=== PATIENT | male | born 1960 | race Caucasian/White ===

== ENCOUNTER 2020-08-04 17:42 | Observation (INO) | payer MEDICARE, SELFPAY ==
--- NOTE | 2020-08-04 17:47 | XRR_ITS ---
PROCEDURE INFORMATION: Exam: XR Chest, 1 View Exam date and time: 08/04/2020 6:02 PM Age: 59 years old Clinical indication: Chest pain; Type not specified; Additional info: Cp TECHNIQUE: Imaging protocol: XR of the chest Views: 1 view. COMPARISON: No relevant prior studies available. FINDINGS: Lungs: Unremarkable. No consolidation. Pleural space: Unremarkable. No pleural effusion. No pneumothorax. Heart/Mediastinum: Unremarkable. No cardiomegaly. Bones/joints: Unremarkable. XR/XR chest 1V portable [id number] IMPRESSION: No acute findings.
--- NOTE | 2020-08-04 17:47 | ECG_ITS ---
[facility] Test Date: 2020-08-04 Pat Name: Chris Lawrence Department: Room: Gender: Male Field Organizer: : 1960 Requested By: Tacho Taylor Order Number: [id number] Nereyda MD: Hali Dumont M.D. Measurements Intervals [place] Rate: 91 P: 15 [place]: 150 QRS: 46 QRSD: 97 T: 75 QT: 333 QTc: 411 Interpretive Statements SINUS RHYTHM INTERPRETATION BASED ON A DEFAULT AGE OF 40 YEARS No previous ECG available for comparison Electronically Signed On 08-04-2020 20:09:22 PROOF CLERK by Hali Dumont M.D. [id number] f
[2020-08-04 17:48] VITALS: BP 134/98; PULSE 107; RESP 16; TEMP 36.4; O2SAT 98; BMI 26.4
--- NOTE | 2020-08-04 17:55 | W.ED.ARRPALP ---
HPI - Arrhythmia/Palpitations General: Chief Complaint: General Medical Stated Complaint: CHEST PAIN Time Seen by Provider: 08/04/20 17:46 Source: patient and EMS Mode of arrival: EMS Limitations: no limitations History of Present Illness: HPI narrative: 59-year-old male states that over the last 2 to 3 months he has been having palpitations and then will feel lightheaded and did pass out once 2 months ago. He states this morning he had an episode that lasted an hour and felt quite lightheaded and had palpitations he states then resolved and then it started again tonight. Patient states he had slight chest pain. Denies any worsening or improving factors. Denies any fever. He denies any pain currently states he is feeling improved currently. MD complaint: rapid heart beat Associated symptoms: Deny nausea or vomiting Review of Systems Const: Denies: fever(s), chills, body aches or change in appetite Eyes: Denies: blurry vision or eye discomfort ENMT: Denies: throat pain or dental pain Card: Reports: chest pain and palpitations Resp: Denies: dyspnea GI: Denies: abdominal pain, nausea, vomiting or diarrhea : Denies: dysuria Musc: Denies: neck pain or back pain Skin/Breast: Denies: rash Neuro: Denies: headache(s) Psych: Denies: depression Tomy/Lymph: Denies: easy bruising All/Imm: Denies: urticaria Physical Exam Const: COMMON NORMALS: no acute distress, patient oriented x3 and healthy appearing HENMT: COMMON NORMALS: normocephalic and atraumatic HEAD & SCALP: normocephalic and atraumatic Eye: COMMON NORMALS: Equal, round and reactive pupils present and EOMs intact bilaterally PUPIL: Yes Equal, round and reactive pupils present Neck/C-Spine: COMMON NORMALS: full ROM and supple Chest: COMMONS NORMALS: normal inspection of the chest and normal palpation of entire chest wall Resp: COMMON NORMALS: normal respiratory effort, No retractions, No use of accessory muscles and clear to auscultation bilaterally AUSCULTATION: clear to auscultation bilaterally Cardio: COMMON NORMALS: regular rhythm and No murmurs present (Cardio) RATE: tachycardic RHYTHM: regular rhythm GI: COMMON NORMALS: Normal to inspection, nondistended, normoactive bowel sounds present, Soft to palpation, non-tender and no masses PALPATION: Yes Soft to palpation Extremity: COMMON NORMALS: normal to inspection and full ROM Neuro: COMMON NORMALS: patient oriented x3, moves all extremities and no focal motor deficits Psych: COMMON NORMALS: mental status grossly normal, Normal thought process present and cooperative THOUGHT PROCESS: Normal thought process present Skin: COMMON NORMALS: no rashes or lesions noted and no wounds GENERAL SKIN EXAM: no rashes or lesions noted Course Vital Signs: Vital signs: Vital Signs Temperature 97.6 F 08/04/20 17:48 Pulse Rate 78 08/04/20 21:05 Respiratory Rate 18 08/04/20 21:05 Blood Pressure 122/96 08/04/20 21:05 Pulse Oximetry 99 08/04/20 21:05 MDM - Arrhythmia/Palpitations MDM Narrative: Medical decision making narrative: Chris presents here with chest pain does have an elevated troponin consistent with NSTEMI. Patient given Lovenox here. He has been pain-free in the ER. Spoke to hospitalist and will admit for ACS rule out. His D-dimer is negative. Lab Data: Labs: Lab Results 08/04/20 08/04/20 08/04/20 Range/Units 17:55 17:55 17:55 WBC 11.1 H (4.0-10.0) 10^3/ uL RBC 5.74 H (4.1-5.3) 10^6/u L Hgb 16.9 H (11.7-16.6) g/dL Hct 50.0 (42.0-52.0) % MCV 87.1 (80-94) fL MCH 29.4 (28.0-34.0) pg MCHC 33.8 (30.0-36.0) g/dL RDW 12.8 (12.1-15.1) % Plt Count 329 (130-400) 10^3/c mm MPV 11.2 H (7.4-10.4) fL Neut % (Auto) 47.8 % Lymph % (Auto) 40.6 % [place] % (Auto) 6.7 % Eos % (Auto) 3.2 % Baso % (Auto) 1.4 % Neut # (Auto) 5.31 (1.8-7.7) 10^3/u L Lymph # (Auto) 4.5 (0.8-4.8) 10^3/u L [place] # (Auto) 0.7 (0.2-0.9) 10^3/u L Eos # (Auto) 0.4 (0.0-0.8) 10^3/u L Baso # (Auto) 0.2 H (0.0-0.1) 10^3/u L Nucleated RBC % (a uto) 0 % Nucleated RBCs # 0.0 /100WBC D-Dimer Sodium Cancelled Potassium Cancelled Chloride Cancelled Carbon Dioxide Cancelled Anion Gap Cancelled BUN Cancelled Creatinine Cancelled GFR Calculation Cancelled Glucose Cancelled Calculated Osmolal ity Cancelled Calcium Cancelled Total Bilirubin Cancelled AST Cancelled ALT Cancelled Alkaline Phosphata se Cancelled Troponin T Baselin e Cancelled Troponin T 120 Min [place] (0-15) ng/L Delta Troponin T (0-10) ABS# Total Protein Cancelled Albumin Cancelled Globulin Cancelled 08/04/20 08/04/20 08/04/20 Range/Units 17:55 18:30 18:30 WBC (4.0-10.0) 10^3/ uL RBC (4.1-5.3) 10^6/u L Hgb (11.7-16.6) g/dL Hct (42.0-52.0) % MCV (80-94) fL MCH (28.0-34.0) pg MCHC (30.0-36.0) g/dL RDW (12.1-15.1) % Plt Count (130-400) 10^3/c mm MPV (7.4-10.4) fL Neut % (Auto) % Lymph % (Auto) % [place] % (Auto) % Eos % (Auto) % Baso % (Auto) % Neut # (Auto) (1.8-7.7) 10^3/u L Lymph # (Auto) (0.8-4.8) 10^3/u L [place] # (Auto) (0.2-0.9) 10^3/u L Eos # (Auto) (0.0-0.8) 10^3/u L Baso # (Auto) (0.0-0.1) 10^3/u L Nucleated RBC % (a uto) % Nucleated RBCs # /100WBC D-Dimer Cancelled 0.37 Sodium 139 Potassium 4.2 Chloride 104 Carbon Dioxide 26 Anion Gap 13.2 BUN 17 Creatinine 1.2 GFR Calculation 62.0 L Glucose 88 Calculated Osmolal ity 289 Calcium 9.6 Total Bilirubin 0.8 AST 16 ALT 12 Alkaline Phosphata se 80 Troponin T Baselin e Troponin T 120 Min rosebud (0-15) ng/L Delta Troponin T (0-10) ABS# Total Protein 6.5 L Albumin 4.2 Globulin 2.3 08/04/20 08/04/20 Range/Units 18:30 20:05 WBC (4.0-10.0) 10^3/ uL RBC (4.1-5.3) 10^6/u L Hgb (11.7-16.6) g/dL Hct (42.0-52.0) % MCV (80-94) fL MCH (28.0-34.0) pg MCHC (30.0-36.0) g/dL RDW (12.1-15.1) % Plt Count (130-400) 10^3/c mm MPV (7.4-10.4) fL Neut % (Auto) % Lymph % (Auto) % [place] % (Auto) % Eos % (Auto) % Baso % (Auto) % Neut # (Auto) (1.8-7.7) 10^3/u L Lymph # (Auto) (0.8-4.8) 10^3/u L [place] # (Auto) (0.2-0.9) 10^3/u L Eos # (Auto) (0.0-0.8) 10^3/u L Baso # (Auto) (0.0-0.1) 10^3/u L Nucleated RBC % (a uto) % Nucleated RBCs # /100WBC D-Dimer Sodium Potassium Chloride Carbon Dioxide Anion Gap BUN Creatinine GFR Calculation Glucose Calculated Osmolal ity Calcium Total Bilirubin AST ALT Alkaline Phosphata se Troponin T Baselin e 54 H Troponin T 120 Min rosebud 78.68 H (0-15) ng/L Delta Troponin T 24.68 H* (0-10) ABS# Total Protein Albumin Globulin Imaging Data^: CXR: Attestation: I personally reviewed and interpreted this imaging study as follows: My impression: no acute abnormalities EKG Data^: EKG 1: Attestation: I personally reviewed and interpreted this EKG as follows: EKG interpretation date: 08/04/20 EKG interpretation time: 17:48 Interpretation: nsr hr [address] or t wave abnormalities qrs 97 qtc 382 Discharge Plan Discharge Patient Disposition: Admitted As Inpatient Clinical Impression: Non-ST elevation [place] (NSTEMI) Condition: Stable Prescriptions: No Action aspirin 325 mg Tablet 325 mg PO PRN RF: 0 omeprazole 20 mg Capsule,Delayed Release(Dr/Ec) 20 mg PO QAM RF: 0 Referrals: Ang Colmenares [Primary Care Provider] - Coding Level of Care Code ED Supervisor Electric for Chg Fwd Exam Comprehensive
[2020-08-04 18:16] LABS: Basophils # 0.2 10^3/uL (0.0-0.1); Basophils % 1.4 %; Eosinophils # 0.4 10^3/uL (0.0-0.8); Eosinophils % 3.2 %; Hemoglobin 16.9 g/dL (11.7-16.6); Lymphocytes # 4.5 10^3/uL (0.8-4.8); Lymphocytes % 40.6 %; Mean Corpuscular HGB Conc 33.8 g/dL (30.0-36.0); Mean Corpuscular Hemoglobin 29.4 pg (28.0-34.0); Mean Corpuscular Volume 87.1 fL (80-94); Mean Platelet Volume 11.2 fL (7.4-10.4); Monocytes # 0.7 10^3/uL (0.2-0.9); Monocytes % 6.7 %; Neutrophils # 5.31 10^3/uL (1.8-7.7); Neutrophils % 47.8 %; Nucleated Red Blood Cells % 0 %; Platelet Count 329 10^3/cmm (130-400); Red Blood Count 5.74 10^6/uL (4.1-5.3); Red Cell Distribution Width 12.8 % (12.1-15.1); White Blood Count 11.1 10^3/uL (4.0-10.0)
[2020-08-04 18:52] VITALS: BP 115/88; PULSE 88; RESP 27; O2SAT 100
[2020-08-04 19:11] LABS: Alanine Aminotransferase 12 U/L (0-41); Albumin Level 4.2 g/dL (3.5-5.2); Alkaline Phosphatase 80 IU/L (40-130); Anion Gap 13.2 (5-19); Aspartate Amino Transferase 16 U/L (0-40); Blood Urea Nitrogen 17 mg/dL (6-20); Calcium 9.6 mg/dL (8.5-10.5); Carbon Dioxide 26 mmol/L (22-29); Chloride 104 mmol/L (98-107); Globulin 2.3 g/dL (1.3-4.6); Glucose 88 mg/dL (65-115); Osmolality Calculated 289 mOsm/kg (285-295); Potassium 4.2 mmol/L (3.5-5.1); Sodium 139 mmol/L (136-145); Total Bilirubin 0.8 mg/dL (0.15-1.2); Total Protein 6.5 g/dL (6.6-8.7)
[2020-08-04 19:12] LABS: D Dimer 0.37 ug/mIFEU (0-0.59)
[2020-08-04 19:35] LABS: Troponin(5th) Baseline 54 ng/L (0-15)
[2020-08-04 20:40] LABS: Troponin 5 2HR 78.68 ng/L (0-15)
[2020-08-04 20:48] LABS: Troponin 5 2HR Delta 24.68 ABS# (0-10)
[2020-08-04 21:05] VITALS: BP 122/96; PULSE 78; RESP 18; O2SAT 99
[2020-08-04] MEDS: nicotine 21 mg Patch 1 PATCH TRANSDERMA (21:46)
[2020-08-04] MEDS: enoxaparin 100 mg/mL Syringe 90 MG SUBCUT (21:46)
[2020-08-04 22:32] VITALS: BP 121/95; PULSE 88; RESP 18; O2SAT 95
--- NOTE | 2020-08-04 22:48 | PM.HP ---
Providers/Chief Complaint Primary Care Provider: Ang Colmenares Chief Complaint: CHEST PAIN History of Present Illness Chris Lawrence is a 59 year old male without significant past medical history presented today with chief complaint of palpitation. Patient is stating that 2 to 3 months ago he had prolonged episode of palpitation which caused syncope he was put on metoprolol but that caused a lot of weakness and lethargy. He discontinued taking metoprolol.. He smokes a pack a day, drinks alcohol occasionally, does not drink excessive caffeine, no previous history of hypo or hyperthyroidism, is denying AK, CHF or stroke like presentation in the past. He presented to the hospital with chief complaint of palpitations. He had 2 episodes today. First 1 lasted for about 10 minutes, there are no relieving or aggravating factors, second episode lasted for about an hour that made him really uncomfortable he started experiencing chest discomfort which she describing as pounding sensation, his both arms became very cold and numb but, no syncopal events. Diagnosis in the ER revealed sinus tachycardia heart rate 110, for his significant delta troponin he was started on ACS protocol, he received therapeutic dose of Lovenox in the ER by the time I saw him his heart rate was in 90s, sinus rhythm no ischemic or infarctive changes, hemodynamically stable Review of Systems Const: Denies: fever(s), chills, body aches or fatigue Eyes: Denies: change in vision ENMT: Denies: throat pain Card: Reports: palpitations Resp: Denies: dyspnea GI: Denies: abdominal pain : Denies: flank pain Musc: Denies: neck pain Skin/Breast: Denies: rash Neuro: Denies: headache(s) Psych: Denies: anxiety Endo: Denies: polyuria Tomy/Lymph: Denies: easy bruising All/Imm: Denies: urticaria Medications/Allergies Home Medications Medication Instructions Recorded Confirmed Last Taken Type aspirin 325 mg PO PRN 08/04/20 08/04/20 Unknown History omeprazole 20 mg PO QAM 08/04/20 08/04/20 08/04/20 History Allergies Allergy/AdvReac Type Severity Reaction Status Date / Time No Known Allergies Allergy Unverified 08/04/20 19:10 PFSH Acute PFSH: Medical History (Updated 08/04/20 @ 23:19 by Lorraine Mosley MD) Cervical vertebral fusion Palpitations Surgical History (Updated 08/04/20 @ 23:15 by Lorraine Mosley MD) H/O hand surgery H/O knee surgery H/O shoulder surgery Family History (Updated 08/04/20 @ 23:16 by Lorraine Mosley MD) Other CAD (coronary artery disease) Diabetes Social History (Updated 08/04/20 @ 23:16 by Lorraine Mosley MD) Smoking and tobacco status: current every day smoker cigarettes Alcohol intake: current Alcohol intake frequency: few times a week Substance/Drug Use: never Housing: House Vitals/I&O/Wt Last Vital Signs Temp 97.6 F 08/04/20 17:48 Pulse 88 08/04/20 22:32 Resp 18 08/04/20 22:32 BP 121/95 08/04/20 22:32 Pulse Ox 95 08/04/20 22:32 Weight last 48 hrs Weight 88.451 kg Physical Exam Narrative: EXAM NARRATIVE: Middle-age male Currently saturating well on room air hemodynamically stable Well-built, hydrated No active distress S1-S2 sinus rhythm No murmur appreciated No signs of hypo or hyperthyroidism Abdomen soft nontender bowel sound present Neurologically nonfocal exam Bilateral breath sounds without adventitious rhonchi or crackles Appropriate mood and affect Lower extremity no edema gangrene or ulcer Data : 08/04/20 17:55 08/04/20 18:30 A&P Assessment and plan (1) Non-ST elevation [place] (NSTEMI): Non-ST segment elevation AK No active chest pain, is delta troponins most likely secondary to type II AK due to palpitations however he is a chronic smoker, age greater than 50 has history of coronary disease in the family and diabetes, he also drinks alcohol occasionally I would start him on ACS protocol, obtain echo in the morning If his heart rate stays stable and he stays asymptomatic with normal vitals and echo does not show any wall motion abnormality, might be able to discontinue ACS protocol Status: Acute (2) Palpitations: Obtain TSH, drug screen, EKG showing sinus tachycardia, obtain D-dimer to rule out PE Patient smokes 1 pack/day, drinks alcohol occasionally, no recreational drug use, does not use excessive caffeine, no recent anxiety of social stressors Previous history of syncope secondary to palpitations, will need long-term cardiology outpatient follow-up and Holter monitoring at discharge Status: Acute Additional A&P Information Cardiac diet DVT prophylaxis not needed currently on therapeutic dose of Lovenox Activity as tolerated Full code Attestations Medical Necessity Statement*: Anticipating stay in the hospital cross more than 2 midnights continued echo to rule out wall motion abnormality currently on ACS protocol for NSTEMI Time Spent in Patient Care: (>than 50% of time spent in counselling and/or direct pt care on unit). 50mins Coding Level of Care Code Acute Rough And Truing Machine Operator for Rodriguez Fwcolton Diagnoses Non-ST elevation [place] (NSTEMI) I21.4 Palpitations R00.2
[2020-08-04 23:40] VITALS: BP 109/81; PULSE 88; RESP 24; O2SAT 97
--- NOTE | 2020-08-04 23:47 | ECG_ITS ---
[facility] Test Date: 2020-08-05 Pat Name: Chris Lawrence Department: Room: ED Gender: Male Cereal Miller: : 1960 Requested By: Tacho Taylor Order Number: [id number] Nereyda MD: Quentin Cuello M.D. Measurements Intervals [place] Rate: 73 P: 57 NE: 165 QRS: 55 QRSD: 93 T: 75 QT: 365 QTc: 404 Interpretive Statements SINUS RHYTHM INTERPRETATION BASED ON A DEFAULT AGE OF 40 YEARS Compared to ECG 08/04/2020 17:48:22 No significant changes Electronically Signed On 08-05-2020 9:45:22 CHIEF MAINTENANCE SUPERVISOR by Quentin Cuello M.D. [id number] f
[2020-08-05] VITALS (9 sets, daily range): BP systolic 125–141; BP diastolic 62–98; PULSE 66–91; RESP 14–26; O2SAT 95–99
[2020-08-05] LABS: Thyroid Stimulating Hormone 3.63 uIU/mL (0.27-4.20)
[2020-08-05 01:06] LABS: Troponin 5 6HR 81.53 ng/L (0-15)
--- NOTE | 2020-08-05 09:07 | USCV_ITS ---
Chris Lawrence Age: 59 Gender: M : 1960 Exam Date: 08/05/2020 09:33 Ordering Phys: Lorraine Mosley MD Technologist: Johan Yepez Exam Location: [facility] Indication: CHEST PAIN BP: 124 / 73 HR: 81 Rhythm: Sinus Technical Quality: Good MEASUREMENTS (Male / Female) Normal Values 2D ECHO LV Diastolic Diameter PLAX 3.2 cm 4.2 - 5.9 / 3.9 - 5.3 cm LV Systolic Diameter PLAX 2.0 cm IVS Diastolic Thickness 0.8 cm 0.6 - 1.0 / 0.6 - 0.9 cm IVS Systolic Thickness 1.1 cm LVPW Diastolic Thickness 0.9 cm 0.6 - 1.0 / 0.6 - 0.9 cm LVPW Systolic Thickness 1.2 cm LVOT Diameter 2.1 cm LV Ejection Fraction 2D Teich 70.0 % LV Ejection Fraction MOD 2C 71.9 % LV Ejection Fraction 2C AL 72.8 % LA Diameter 3.5 cm LA Width 3.6 cm LA Height 4.3 cm RA Width 3.2 cm RA Height 4.8 cm Aorta at Sinotubular Diameter 1.4 cm M-MODE LV Diastolic Diameter MM 5.3 cm 4.2 - 5.9 / 3.9 - 5.3 cm LV Systolic Diameter MM 3.5 cm LV Ejection Fraction MM Teich 63.4 % IVS Diastolic Thickness MM 0.8 cm 0.6 - 1.0 / 0.6 - 0.9 cm IVS Systolic Thickness MM 1.5 cm LVPW Diastolic Thickness MM 1.4 cm 0.6 - 1.0 / 0.6 - 0.9 cm LVPW Systolic Thickness MM 1.7 cm RV Diastolic Diameter MM 1.5 cm Aortic Annulus Diameter 4.2 cm LA Ao Ratio MM 1.0 DOPPLER AV Peak Velocity 103.0 cm/s LVOT Peak Velocity 67.0 cm/s AV Area Cont Eq vti 2.0 cm squared AV Area Cont Eq pk 2.2 cm squared MV Area PHT 5.0 cm squared Mitral E to A Ratio 0.7 MV E' Velocity 26.0 cm/s Mitral E to MV E' Ratio 5.4 Mitral E to LV E' Lateral Ratio 5.8 Mitral E to LV E' Septal Ratio 5.1 TR Peak Velocity 186.3 cm/s TR Peak Gradient 13.9 mmHg TV Peak E Velocity 74.0 cm/s Right Atrial Pressure 3.0 mmHg Pulmonary Artery Systolic Pressu 16.9 mmHg FINDINGS Left Ventricle Normal left ventricular size and systolic function, EF 65 %. No regional wall motion abnormalities. Right Ventricle The right ventricle is normal in size and function. Right Atrium The right atrium is normal in size. Left Atrium The left atrium is normal in size. Mitral Valve Trace mitral valve regurgitation. Aortic Valve No gross abnormalities noted Tricuspid Valve No gross abnormalities noted Pulmonic Valve Pulmonic valve not well visualized. Pericardium Normal pericardium without effusion. Aorta Mildly dilated aortic root measuring 3.6 cm at the level of the isthumus CONCLUSIONS Normal left ventricular size and systolic function, EF 65 %. No regional wall motion abnormalities. Mildly dilated aortic root measuring 3.6 cm at the level of the isthumus. Trace mitral valve regurgitation. There is no pericardial effusion. There are no intracardiac masses. There are no prior echocardiogram studies to compare. Dr Sandy Quesada MD FACC Edited by: CV Acid Blower (Electronically Signed) Final Date: 05 August 2020 12:53 Amended: 06 August 2020 12:59 C
--- NOTE | 2020-08-05 09:13 | P.PN_ITS ---
Subjective Subjective: Interval history: Chris is seen in the emergency department as he is boarding. History reviewed. He has significant history of palpitations, occurring multiple times over the last 2 years. He reports a [facility] ER they noted that he had a fast rhythm that converted with Valsalva. He was not prescribed any medicine on discharge. He reports by the time he got here his palpitations were gone. He denied any chest discomfort. He has no history of coronary disease. Troponin was elevated on arrival here with significant delta so concern for non-ST elevation myocardial infarction was present. Medications: Reviewed: Yes Vitals/I&O/Wt Last Vital Signs Temp 97.6 F 08/04/20 17:48 Pulse 75 08/05/20 08:19 Resp 14 08/05/20 08:19 BP 128/62 08/05/20 08:19 Pulse Ox 98 08/05/20 08:19 Weight last 48 hrs Weight 88.451 kg Physical Exam Narrative: EXAM NARRATIVE: General exam no apparent distress Cardiovascular regular in rhythm without murmur Lungs clear Abdomen is soft with positive bowel sounds Extremities no cyanosis clubbing or edema. Data : 08/04/20 17:55 08/04/20 18:30 A&P Assessment and plan (1) Non-ST elevation [place] (NSTEMI): Given the history I think this is a type II elevation secondary to arrhythmia. Await echocardiogram Patient reports significant palpitations. Start metoprolol 12.5 mg twice daily Cardiology consultation Dimer was negative Obtain ER visit from [facility] regarding arrhythmia as well as strips from EMS crew. Status: Acute (2) Palpitations: Initiate metoprolol Cardiology consultation TSH was normal Check magnesium Suspect he will need event monitor as outpatient as well as cardiology follow- up. Status: Acute Additional A&P Information Cardiac diet DVT prophylaxis not needed currently on therapeutic dose of Lovenox Activity as tolerated Full code Attestations Medical Necessity Statement*: Will not need greater than 2 midnights if can clarify nature of palpitations. Coding Level of Care Code Acute Hat Finishing Materials Preparer for Rodriguez Posey Diagnoses Non-ST elevation [place] (NSTEMI) I21.4 Palpitations R00.2
[2020-08-05 09:34] LABS: Magnesium 2.1 mg/dL (1.7-2.3)
[2020-08-05] MEDS: aspirin 325 mg Tablet PO (09:54)
[2020-08-05] MEDS: metoprolol tartrate 25 mg Tablet 12.5 MG PO (09:57)
[2020-08-05 10:19] LABS: Blood Urea Nitrogen 18 mg/dL (6-20); Calcium 9.6 mg/dL (8.5-10.5); Carbon Dioxide 28 mmol/L (22-29); Chloride 101 mmol/L (98-107); Glomerular Filtration Rate 68.5 mL/min (90-130); Glucose 68 mg/dL (65-115); Osmolality Calculated 286 mOsm/kg (285-295); Sodium 138 mmol/L (136-145)
[2020-08-05] MEDS: enoxaparin 100 mg/mL Syringe 90 MG SUBCUT (10:25)
[2020-08-05 10:26] LABS: Anion Gap 13.2 (5-19); Potassium 4.2 mmol/L (3.5-5.1)
[2020-08-05] MEDS: lisinopril 2.5 mg Tablet PO (10:26)
[2020-08-05] MEDS: atorvastatin 40 mg Tablet 80 MG PO (10:26)
[2020-08-05] MEDS: pantoprazole DR 40 mg Tablet PO (10:33)
--- NOTE | 2020-08-05 12:39 | PM.DCS ---
Discharge Providers Date of Admission: 08/05/20 07:00 Date of Discharge: August 05, 2020 Attending Provider at Admission: Rafiq Salamanca MD Attending Provider at Discharge: Rafiq Salamanca MD Primary Care Provider: Ang Colmenares Diagnoses at Discharge Discharge Diagnosis (1) Palpitations: Status: Acute Reason for Visit Reason for Visit: CHEST PAIN Hospital Course Hospital Course Chris presented to the hospital complaining of palpitations. He reports he has had multiple episodes of this over the last several years. On arrival to the emergency department he was worked up for chest discomfort. Elevated troponin, with significant delta was found. Patient denied any chest discomfort. EKG did not demonstrate any evidence of ischemia. On further review and obtaining old records it was found the patient has SVT, documented in ER stay at [facility] approximately 3 months ago when heart rate was 190. Cardiology was consulted after admission here at the hospital. It was thought he was safe to go home on metoprolol 25 mg twice daily for SVT. He will have an outpatient stress test secondary to his palpitations, family history of coronary disease. He should return for any severe recurrence of palpitations or any chest discomfort. He was instructed not to drink any alcohol, and to significantly reduce caffeine. Echocardiogram was also performed which demonstrated no significant abnormality. Discharge Data Data Completed and Pending: Completed Studies During Hospitalization Category Date Time Status XR chest 1V rashel ble [id number] Stat Exams 08/04/20 17:47 Completed Pending at discharge Category Date Time Status CV echo complete* [id number] Stat Ultrasound 08/05/20 09:07 Taken Labs from last 24 hours 08/05/20 08/04/20 08/04/20 09:52 20:05 18:30 WBC RBC Hgb Hct MCV MCH MCHC RDW Plt Count MPV Neut % (Auto) Lymph % (Auto) [place] % (Auto) Eos % (Auto) Baso % (Auto) Neut # (Auto) Lymph # (Auto) [place] # (Auto) Eos # (Auto) Baso # (Auto) Nucleated RBC % (a uto) Nucleated RBCs # D-Dimer Sodium 138 Potassium 4.2 Chloride 101 Carbon Dioxide 28 Anion Gap 13.2 BUN 18 Creatinine 1.1 GFR Calculation 68.5 L Glucose 68 Calculated Osmolal ity 286 Calcium 9.6 Magnesium 2.1 Total Bilirubin AST ALT Alkaline Phosphata se Troponin T Baselin e Troponin T 120 Min [place] 78.68 H Delta Troponin T 24.68 H* Troponin T Hi Sens 6Hr Troponin T Hi Sens 6Hr Delta Total Protein Albumin Globulin TSH 08/04/20 08/04/20 08/04/20 18:30 18:30 18:30 WBC RBC Hgb Hct MCV MCH MCHC RDW Plt Count MPV Neut % (Auto) Lymph % (Auto) [place] % (Auto) Eos % (Auto) Baso % (Auto) Neut # (Auto) Lymph # (Auto) [place] # (Auto) Eos # (Auto) Baso # (Auto) Nucleated RBC % (a uto) Nucleated RBCs # D-Dimer Sodium 139 Potassium 4.2 Chloride 104 Carbon Dioxide 26 Anion Gap 13.2 BUN 17 Creatinine 1.2 GFR Calculation 62.0 L Glucose 88 Calculated Osmolal ity 289 Calcium 9.6 Magnesium Total Bilirubin 0.8 AST 16 ALT 12 Alkaline Phosphata se 80 Troponin T Baselin e 54 H Troponin T 120 Min [place] Delta Troponin T Troponin T Hi Sens 6Hr Troponin T Hi Sens 6Hr Delta Total Protein 6.5 L Albumin 4.2 Globulin 2.3 TSH 3.63 08/04/20 08/04/20 08/04/20 18:30 17:55 17:55 WBC RBC Hgb Hct MCV MCH MCHC RDW Plt Count MPV Neut % (Auto) Lymph % (Auto) [place] % (Auto) Eos % (Auto) Baso % (Auto) Neut # (Auto) Lymph # (Auto) [place] # (Auto) Eos # (Auto) Baso # (Auto) Nucleated RBC % (a uto) Nucleated RBCs # D-Dimer 0.37 Cancelled Sodium Potassium Chloride Carbon Dioxide Anion Gap BUN Creatinine GFR Calculation Glucose Calculated Osmolal ity Calcium Magnesium Total Bilirubin AST ALT Alkaline Phosphata se Troponin T Baselin e Cancelled Troponin T 120 Min [place] Delta Troponin T Troponin T Hi Sens 6Hr Troponin T Hi Sens 6Hr Delta Total Protein Albumin Globulin TSH 08/04/20 08/04/20 08/04/20 17:55 17:55 00:40 WBC 11.1 H RBC 5.74 H Hgb 16.9 H Hct 50.0 MCV 87.1 MCH 29.4 MCHC 33.8 RDW 12.8 Plt Count 329 MPV 11.2 H Neut % (Auto) 47.8 Lymph % (Auto) 40.6 [place] % (Auto) 6.7 Eos % (Auto) 3.2 Baso % (Auto) 1.4 Neut # (Auto) 5.31 Lymph # (Auto) 4.5 [place] # (Auto) 0.7 Eos # (Auto) 0.4 Baso # (Auto) 0.2 H Nucleated RBC % (a uto) 0 Nucleated RBCs # 0.0 D-Dimer Sodium Cancelled Potassium Cancelled Chloride Cancelled Carbon Dioxide Cancelled Anion Gap Cancelled BUN Cancelled Creatinine Cancelled GFR Calculation Cancelled Glucose Cancelled Calculated Osmolal ity Cancelled Calcium Cancelled Magnesium Total Bilirubin Cancelled AST Cancelled ALT Cancelled Alkaline Phosphata se Cancelled Troponin T Baselin e Troponin T 120 Min [place] Delta Troponin T Troponin T Hi Sens 6Hr 81.53 H Troponin T Hi Sens 6Hr Delta -27.53 L Total Protein Cancelled Albumin Cancelled Globulin Cancelled TSH Vitals: Last Vital Signs Temp 97.6 F 08/04/20 17:48 Pulse 75 08/05/20 08:19 Resp 14 08/05/20 08:19 BP 128/62 08/05/20 08:19 Pulse Ox 98 08/05/20 08:19 Discharge Plan Discharge Patient Disposition: Home Condition: Stable Prescriptions: New metoprolol tartrate 25 mg tablet 25 mg PO BID Qty: 60 RF: 0 Continued aspirin 325 mg Tablet 325 mg PO PRN RF: 0 omeprazole 20 mg Capsule,Delayed Release(Dr/Ec) 20 mg PO QAM RF: 0 Discharge Orders: Discharge Order (Routine); Ordered 08/05/20 Ordered By: Rafiq Salamanca Other Ambulatory Orders: Sestamibi Stress Test Request (Routine) Timeframe: 1 Week Facility: [facility] - Location: Cardiac Diagnostic Laboratory Ordered By: Rafiq Salamanca Referrals: Sandy Quesada MD [Physician] - (Follow-up in 3 weeks with cardiology) Ang Colmenares [Primary Care Provider] - 4-7 days Discharge Diet: As Directed Discharge Activity: Increase activity as tolerated Activity Restrictions/Additional Instructions: Avoid caffeine, alcohol. Return for any recurrence of severe palpitations or any chest discomfort. Discharge Attestations Time Spent in Discharge Care*: greater than 30 min Quality Metrics Clinical Quality Measures During this hospital stay, did patient experience: None Coding Level of Care Code Acute Biofuels Technology Manager for Chg Fwd Diagnoses Palpitations R00.2
--- NOTE | 2020-08-05 12:54 | P.CONIM_ITS ---
Providers/Reason For Consult Consulting Physican/Specialty*: PHOEBE Quesada MD/cardiology Reason for Consult*: Patient with elevated troponin and tachyarrhythmia Attending Physician: Rafiq Salamanca MD Primary Care Provider: Ang Colmenares History of Present Illness History of Present Illness Chris Lawrence is a 59 year old male, brought to the emergency room last night with complaints of a tachyarrhythmia and a near syncopal episode. This patient has a history of palpitations off and on for the last 3 years. So far he had a 01/17/2006 episodes of similar symptoms. Yesterday evening, he had 2 episodes of palpitations. Posteromedial lasted for 15 minutes or so. He was feeling the heart pounding hard and associated dizziness. He made he had some shortness of breath. No nausea or vomiting. No sweating. No syncopal episode. The second episode lasted longer. At this point, his called the ambulance. He had a rhythm strip which revealed SVT.(Per report, need to review). With a Valsalva maneuver, apparently the rhythm turned into sinus. He has been staying in the sinus rhythm since then. He did not have any chest pain as such. He may have some tight feeling in the chest. As of now he seems to be stable with no specific symptoms. Patient has no previous history for coronary artery disease, myocardial infarction or congestive heart failure. No history for hypertension or diabetes. He has history of arthritis requiring multiple orthopedic surgeries in the past. He is currently not on any medications. He is currently boarded in the emergency room since there is no beds available in the hospital. #4 the patient had to go to the hospital emergency room 2 times with the symptoms. And the time he went to see the physician on the following day. One time he had an episode of passing out/syncope with the spell. Last time in the emergency room, he responded to the tachyarrhythmia with a vagal maneuver. The rhythm strip from the March ER visit which revealed supraventricular tachycardia at a rate of 186 bpm Review of Systems Narrative: CONSTITUTIONAL: No fever or chills. EYES: No blurring of vision or other visual disturbances lately. ENT: No hoarseness of voice, auditory disturbances or sore throat. CARDIOVASCULAR: As mentioned above. RESPIRATORY: No significant cough. GASTROINTESTINAL: No hematemesis or melena. GENITOURINARY: No dysuria or hematuria. INTEGUMENTARY: No skin rashes or history of skin cancer. NEURO: No transient ischemic attacks or amaurosis. PSYCHIATRIC: No history of psychosis or major depression. HEMATOLOGIC: No bleeding disorders or significant anemia. ENDOCRINE: No history of polyuria or polydipsia. MUSCULOSKELETAL: Multiple orthopedic surgeries involving the neck, shoulder, knee and the arms. ALLERGY/IMMUNOLOGY: As mentioned above. Meds/Allergies Home Medications and Allergies Home Medications Medication Instructions Recorded Confirmed Last Taken Type aspirin 325 mg PO PRN 08/04/20 08/04/20 Unknown History omeprazole 20 mg PO QAM 08/04/20 08/04/20 08/04/20 History Allergies Allergy/AdvReac Type Severity Reaction Status Date / Time No Known Allergies Allergy Unverified 08/04/20 19:10 Current Medications Current Medications Generic Name Dose Route Start Last Admin Trade Name Freq PRN Reason Stop Dose Admin Atorvastatin Calcium 80 mg 08/05/20 10:30 08/05/20 10:26 Atorvastatin 40 Mg Tablet PO 80 mg DAILY BETHANY Administration Enoxaparin Sodium 90 mg 08/05/20 10:30 08/05/20 10:25 Enoxaparin 100 Mg/Ml Syringe SUBCUT 90 mg Q12H BETHANY Administration Lisinopril 2.5 mg 08/05/20 10:30 08/05/20 10:26 Lisinopril 2.5 Mg Tablet PO 2.5 mg DAILY BETHANY Administration Metoprolol Tartrate 12.5 mg 08/05/20 10:00 08/05/20 09:57 Metoprolol Tartrate 25 Mg Tablet PO 12.5 mg BID@0900,2100 BETHANY Administration Pantoprazole Sodium 40 mg 08/05/20 10:30 08/05/20 10:[address] 40 Mg Tablet PO 40 mg DAILY BETHANY Administration PFSH Acute PFSH: Medical History (Updated 08/05/20 @ 13:05 by Sandy Quesada MD) Cervical vertebral fusion Dilated aortic root Palpitations Surgical History H/O hand surgery H/O knee surgery H/O shoulder surgery Family History Other CAD (coronary artery disease) Diabetes Social History Smoking and tobacco status: current every day smoker cigarettes Alcohol intake: current Alcohol intake frequency: few times a week Substance/Drug Use: never Housing: House Vitals/I&O/Wt Last Vital Signs Temp 97.6 F 08/04/20 17:48 Pulse 75 08/05/20 08:19 Resp 14 08/05/20 08:19 BP 128/62 08/05/20 08:19 Pulse Ox 98 08/05/20 08:19 Weight last 48 hrs Weight 195 lb Physical Exam Narrative: EXAM NARRATIVE: GENERAL: The patient is alert and oriented times three. Not in any acute distress. HEENT: No significant pallor, icterus or lymphadenopathy. Pupils are symmetrical. Fundus is not visualized. NECK: Trachea appears to be central. No masses noted. No JVD or thyromegaly appreciated. No carotid bruit. RESPIRATORY: Chest is symmetrical. No intercostals muscle retraction or any accessory muscle activation. There is no chest wall tenderness. Breath sounds are heard bilaterally. No rales or rhonchi heard. No evidence of any consolidation. BREASTS: Deferred. HEART: The PMI could not be palpated. No other palpable precordial events. First second heart sounds are normal. No S3. No significant murmurs. ABDOMEN: No vessel pulsations or distention. No tenderness. No organomegaly appreciated. No abdominal bruit. Bowel sounds are normally heard. : Deferred. RECTAL: Deferred. LYMPHATIC: No lymphadenopathy noted in the neck or groin. EXTREMITIES: No edema or cyanosis. No clubbing. MUSCULOSKELETAL: No acute joint deformities or swelling. SKIN: There are no significant scars or skin rash noted. NEUROPSYCHIATRIC: The patient is alert and oriented x3. Appears to be in a good mood. The higher functions are grossly within normal limits. No tremors or rigidity noted. Data Labs: Other Labs: Laboratory Last Values WBC 11.1 10^3/uL (4.0 -10.0) H 08/04/20 17:55 RBC 5.74 10^6/uL (4.1 -5.3) H 08/04/20 17:55 Hgb 16.9 g/dL (11.7-1 6.6) H 08/04/20 17:55 Hct 50.0 % (42.0-52.0 ) 08/04/20 17:55 MCV 87.1 fL (80-94) 08/04/20 17:55 MCH 29.4 pg (28.0-34. 0) 08/04/20 17:55 MCHC 33.8 g/dL (30.0-3 6.0) 08/04/20 17:55 RDW 12.8 % (12.1-15.1 ) 08/04/20 17:55 Plt Count 329 10^3/cmm (130 -400) 08/04/20 17:55 MPV 11.2 fL (7.4-10.4 ) H 08/04/20 17:55 Neut % (Auto) 47.8 % 08/04/20 17:55 Lymph % (Auto) 40.6 % 08/04/20 17:55 [place] % (Auto) 6.7 % 08/04/20 17:55 Eos % (Auto) 3.2 % 08/04/20 17:55 Baso % (Auto) 1.4 % 08/04/20 17:55 Neut # (Auto) 5.31 10^3/uL (1.8 -7.7) 08/04/20 17:55 Lymph # (Auto) 4.5 10^3/uL (0.8- 4.8) 08/04/20 17:55 [place] # (Auto) 0.7 10^3/uL (0.2- 0.9) 08/04/20 17:55 Eos # (Auto) 0.4 10^3/uL (0.0- 0.8) 08/04/20 17:55 Baso # (Auto) 0.2 10^3/uL (0.0- 0.1) H 08/04/20 17:55 Nucleated RBC % (a uto) 0 % 08/04/20 17:55 Nucleated RBCs # 0.0 /100WBC 08/04/20 17:55 D-Dimer 0.37 ug/mIFEU (0- 0.59) 08/04/20 18:30 Sodium 138 mmol/L (136-1 45) 08/05/20 09:52 Potassium 4.2 mmol/L (3.5-5 .1) 08/05/20 09:52 Chloride 101 mmol/L (98-10 7) 08/05/20 09:52 Carbon Dioxide 28 mmol/L (22-29) 08/05/20 09:52 Anion Gap 13.2 (5-19) 08/05/20 09:52 BUN 18 mg/dL (6-20) 08/05/20 09:52 Creatinine 1.1 mg/dL (0.7-1. 2) 08/05/20 09:52 GFR Calculation 68.5 mL/min (90-1 30) L 08/05/20 09:52 Glucose 68 mg/dL (65-115) 08/05/20 09:52 Calculated Osmolal ity 286 mOsm/kg (285- 295) 08/05/20 09:52 Calcium 9.6 mg/dL (8.5-10 .5) 08/05/20 09:52 Magnesium 2.1 mg/dL (1.7-2. 3) 08/04/20 18:30 Total Bilirubin 0.8 mg/dL (0.15-1 .2) 08/04/20 18:30 AST 16 U/L (0-40) 08/04/20 18:30 ALT 12 U/L (0-41) 08/04/20 18:30 Alkaline Phosphata se 80 IU/L (40-130) 08/04/20 18:30 Troponin T Baselin e 54 ng/L (0-15) H 08/04/20 18:30 Troponin T 120 Min luz 78.68 ng/L (0-15) H 08/04/20 20:05 Delta Troponin T 24.68 ABS# (0-10) H* 08/04/20 20:05 Troponin T Hi Sens 6Hr 81.53 ng/L (0-15) H 08/04/20 00:40 Troponin T Hi Sens 6Hr Delta -27.53 ng/L (0-12 ) L 08/04/20 00:40 Total Protein 6.5 g/dL (6.6-8.7 ) L 08/04/20 18:30 Albumin 4.2 g/dL (3.5-5.2 ) 08/04/20 18:30 Globulin 2.3 g/dL (1.3-4.6 ) 08/04/20 18:30 TSH 3.63 uIU/mL (0.27 -4.20) 08/04/20 18:30 Imaging^: CXR: My impression: Normal cardiac silhouette. No infiltrate. No acute pathology. Echo: My impression: Echocardiogram revealed normal LV size ejection fraction of 65%. No gross wall motion normalities. Trace of mitral regurgitation. No intracardiac masses. No pericardial effusion. Aortic root is mildly dilated. The aorta measured at 3.5 cm at the level of the isthumus. EKG^: EKG 1: My Interpretation: EKG showed a normal sinus rhythm with some nonspecific T wave changes in lead aVL. Otherwise unremarkable. A&P Assessment and plan (1) Supraventricular tachycardia: Since the patient has intolerance to metoprolol, I may start him on flecainide 50 mg p.o. now and twice daily. Proper use of the medication were discussed with the patient. Status: Acute (2) Elevated troponin: Concerning the possibility of coronary ischemia, and exercise/sestamibi/sestamibi stress test would be appropriate. This may be scheduled as an outpatient. Status: Acute (3) Dilated aortic root: Patient has no specific symptoms. We will be watching this as an outpatient Status: Acute Consult Attestations Medical Necessity Statement: If the patient continues remain stable after giving the first dose of the flecainide, may be discharged home from the emergency room. He will be seen in the office in 1 week by the nurse practitioner. Will have an EKG at that time Coding Level of Care Code Acute Preschool Teacher for Chg Fwd Diagnoses Supraventricular tachycardia I47.1 Elevated troponin R77.8 Dilated aortic root I77.810
[2020-08-05] MEDS: flecainide 100 mg Tablet 50 MG PO (13:27)
--- NOTE | 2020-08-06 17:34 | PC.RESP ---
Smoking Cessation information sent to patient.
--- NOTE | 2020-08-07 10:28 | DCPLANNER ---
manager transportation planning had message to schedule an outpatient stress test. manager transportation planning faxed order to centralized scheduling. manager transportation planning will call for appointment information.
--- NOTE | 2020-08-26 08:35 | DCPLANNER ---
Patient has an outpatient stress test scheduled for , August 28, 2020 at 9:15.
--- NOTE | 2020-09-16 09:19 | DCPLANNER ---
Patient had an outpatient stress test scheduled - patient did attend appointment.
== END 2020-08-05 13:33 | disposition home or self-care (01) ==
LOC: ER 22:11 → CSU 08-05 12:34
PROVIDERS: Internal Medicine; Admitting Provider Internal Medicine; Emergency Provider Emergency Medicine; PCP Family Medicine; Visit Provider Internal Medicine
DX: I21.4 Non-ST elevation (NSTEMI) myocardial infarction (principal); R00.2 Palpitations; Z79.82 Long term (current) use of aspirin; F17.210 Nicotine dependence, cigarettes, uncomplicated; Z82.49 Family history of ischemic heart disease and other diseases of the circulatory system; Z83.3 Family history of diabetes mellitus; I47.1 Supraventricular tachycardia; R77.8 Other specified abnormalities of plasma proteins; I77.810 Thoracic aortic ectasia
CPT/HCPCS: 12345; 36415; 71045; 80048; 80053; 83735; 84443; 84484; 85025; 85378; 93005; 93306; 96372; 99283; 99285; G0378; J1650

== ENCOUNTER 2020-09-11 06:54 | Outpatient (CLI) | payer MEDICARE, SELFPAY ==
--- NOTE | 2020-09-11 07:22 | ECG_ITS ---
[facility] Test Date: 2020-09-11 Pat Name: Chris Lawrence Department: Room: Gender: Male Regional Property Manager: : 1960 Requested By: Rafiq Cadet Order Number: [id number] Nereyda MD: Hali Dumont M.D. Interpretive Statements NAME OF STUDY: EXERCISE SESTAMIBI STRESS TEST INDICATION: Palpations Baseline blood pressure of 147/84 mm Hg, heart rate of 81 beats per minute and oxygen saturation of 92%. EKG showed normal sinus rhythm, normal axis with possible old septal infarct. The patient exercised for 8 minutes 10 seconds on a standard Shaheen protocol. Patient attained a maximum heart rate of 140 beats per minute(86% of the maximum predicted heart rate) with a blood pressure at the peak exercise of 180/106 mm Hg and oxygen saturation of 89%. The EKG at the peak exercise revealed sinus tachycardia with no significant ST-T wave changes with baseline artifact. Patient did not have any chest pain or any significant arrhythmis with the exercise. The study was terminated due to shortness of breath, fatigue and protocol completion. During the recovery phase, there were no new changes. Blood pressure at the end of the recovery phase was 148/93 mm Hg with a heart rate of 97 beats per minute and oxygen saturation 95%. CONCLUSION: 1. Normal EKG response to treadmill exercise 2. No exercise-induced chest pain or cardiac arrhythmia 3. Exercise tolerance, attained a maximum of 10.2 METs. Maximum VO2 of 35.7 mL/kg/min. 4. Baseline hypertension with normal response to exercise. 5. Perfusion scan will be documented separately. Electronically Signed On 09-11-2020 16:26:18 CARAMEL CUTTER HAND by Hali Dumont M.D. [id number]
--- NOTE | 2020-09-11 07:22 | NMCV_ITS ---
NM andrei perf SPECT r/s* [id number] Chris Lawrence Age: 59 Gender: M : 1960 Exam Date: 09/11/2020 08:21 Ordering Phys: Rafiq Salamanca MD Technologist: JUDY Hahn Exam Location: [facility] Indications: PALPITATION STRESS TEST [facility] IMAGE PROTOCOL Rest/Stress 1 Exercise Day Radiopharmaceutical Dose (mCi) Administration Site Administered by Rest: Tc-99m 10.8 IV JUDY Fleming Sestamibi Stress:Tc-99m 32.8 IV JUDY Fleming Sestamibi Rest: 11-Sep-2020 60 Discovery 630 Stress: 11-Sep-2020 30 Discovery 630 Radiopharmaceutical was injected at 85 % maximum heart rate. Supine position only as patient was unable to lay prone. SPECT RESULTS Technical Quality: Excellent Raw Data Analysis: Normal Image Corrections: No attenuation or motion correction applied Summed Stress Score: 4 Summed Rest Score: 15 Summed Difference Score: 0 PERFUSION FINDINGS Medium size perfusion abnormality of moderate severity of entire inferior, mid to apical inferoseptal, mid to apical inferolateral and apical church on rest images with somewhat improved tracer uptake in inferior, septal and lateral church on supine stress images. This likely represents attenuation artifact. FUNCTIONAL RESULTS (calculated via Gated SPECT) Stress Image LV EF (%): 65 Stress EDV (mL):102 TID: 0.79 Stress ESV (mL):36 FUNCTIONAL FINDINGS: The left ventricle is normal in size. Transient Ischemia Dilatation of 0.79. There is normal left ventricular systolic function. The left ventricular ejection fraction is normal with a value of 65%. There is normal left ventricular wall thickening. Normal end-diastolic and end-systolic volumes. IMPRESSIONS 1. Medium sized paradoxical perfusion abnormality of moderate severity of entire inferior, mid to apical inferoseptal, mid to apical inferolateral and apical church. This likely represents attenuation artifact. 2. Overall left ventricular systolic function is normal without regional wall motion abnormalities. 3. The left ventricular ejection fraction is normal with a value of 65%. 4. There is normal left ventricular wall thickening. 5. No prior similar studies to compare. Hali Dumont MD (Electronically Signed) Final Date: 11 September 2020 16:22 S
[2020-09-11 07:23] VITALS: BMI 27.1
[2020-09-11 09:34] VITALS: BP 148/93; PULSE 96
== END 2020-09-11 06:55 | disposition home or self-care (01) ==
LOC: RAD 06:59 → CDL 07:22
PROVIDERS: PCP Family Medicine; Visit Provider Internal Medicine
DX: R00.2 Palpitations (principal)
CPT/HCPCS: 78452; 93017; A9500

== ENCOUNTER 2021-11-06 07:34 | Outpatient (CLI) | payer MEDICARE, SELFPAY ==
--- NOTE | 2021-11-06 07:51 | MR_ITS ---
WS: [id number] MRI LEFT SHOULDER HISTORY: Limited range of motion. COMPARISON: None available. TECHNIQUE: Multiplanar sequences of the shoulder joint are submitted. Mild widening of the AC joint. AC joint measures 2.1 cm. No history of surgery on the LEFT shoulder p rovided. There may have been decompression at the AC joint. Distal clavicle is causing very slight en croachment and deformity of the anterior supraspinatus muscle. There is no os acromion. Biceps tendon is present in the bicipital groove. There is increase fluid within the biceps tendon sheath. Mildly high riding humeral head. Moderate degenerative joint space narrowing with loss of cartilage a nd osteophytes at the glenohumeral joint. There is a large amount of marrow edema in the humeral head at the site of the rotator cuff attachment. Moderate-sized insertion site tear of the supraspinatus tendon tear, there is no retraction of the tendon. There is a additional significant thickening of th e tendon and increased T2 signal within the distal 3 to 4 cm of the tendon. Infraspinatus tendon is i ntact. Moderate tendinopathy and fraying along the distal subscapularis tendon. No tear appreciated. There is significant edema with surrounding the subscapularis tendon and the rotator cuff interval. N o muscle edema or atrophy of the rotator cuff muscles. Fraying and increased signal consistent with i ntrasubstance degeneration within the labrum. MR/MR shoulder LT wo con* [id number] IMPRESSION: 1. Moderate-sized insertion site tear supraspinatus with significant additiona l supraspinatus tendinopathy. Significant fraying along the surfaces of distal supraspinatus tendon. 2. At least moderate tendinopathy of the subscapularis tendon. There is frayin g along the surface but no full-thickness tear or retraction. 3. Wide AC joint probably from prior decompression although that history was n ot provided. 4. Increase fluid in the biceps tendon sheath. 5. Moderate glenohumeral joint osteoarthritis. Significant marrow edema in the humeral head at the rotator cuff insertion site. 6. Increased T2 signal in the region of the rotator cuff interval.
--- NOTE | 2021-11-06 07:51 | MR_ITS ---
WS: [id number] MRI RIGHT SHOULDER HISTORY: Bilateral shoulder pain. Multiple prior surgeries. COMPARISON: 09/18/2010 TECHNIQUE: Multiplanar sequences of the shoulder joint are submitted. Marked AC joint arthritis. Large osteophytes and hypertrophic bone formation involving the distal cla vicle. AC joint is narrowed with osteophyte encroachment upon the medial humeral head. Very small cristal iber biceps tendon. As compared to the study from 2010 there has been a decrease in size of the tendo n. No os acromion. Micrometallic artifacts in the shoulder from prior surgeries. Osteophytic ridging around the humeral head and glenoid with moderate joint space narrowing. Humeral head is high riding abutting the undersurface of the acromion with remodeling of the acromion. There is a full-thickness tear with retraction of the supraspinatus tendon. Tendon is retracted medial to t he glenoid. Severe atrophy of the supraspinatus. Infraspinatus is not retracted. Insertion site tear versus tendinopathy of the infraspinatus. There is mild atrophy of the infraspinatus muscle. Subscapu celia tendon is intact. There are several anchors in the humeral head with advanced degenerative oreilly ges involving the cortex of the humeral head. Small subchondral cyst with loss of the normal cartilag e and cortex of the humeral head. Loss of the normal cartilage and labrum at the shoulder joint. MR/MR shoulder RT wo con* [id number] IMPRESSION: 1. Significant progression of degenerative changes at the shoulder. 2. Complete tear of the supraspinatus tendon with retraction proximal to the g lenoid and severe supraspinatus muscle atrophy. 3. Prior rotator cuff repair. Numerous anchors are present in the humeral head . 4. Advanced degenerative changes at the glenohumeral joint with loss of cartil age and labrum. 5. Severe AC joint hypertrophy with significant encroachment upon the humeral head. 6. Insertion site tear infraspinatus tendon without retraction. Mild atrophy o f the infraspinatus muscle. 7. Very tiny caliber biceps tendon in the bicipital groove. This represents a change since the prior study.
== END 2021-11-06 07:35 | disposition home or self-care (01) ==
PROVIDERS: PCP Family Medicine; Visit Provider Family Medicine
DX: M25.612 Stiffness of left shoulder, not elsewhere classified (principal); M25.611 Stiffness of right shoulder, not elsewhere classified; M75.102 Unspecified rotator cuff tear or rupture of left shoulder, not specified as traumatic; M75.121 Complete rotator cuff tear or rupture of right shoulder, not specified as traumatic
CPT/HCPCS: 73221

== ENCOUNTER → 2021-11-25 14:37 | Outpatient (BNVA) | payer MEDICARE, SELFPAY | PROVIDERS: PCP Family Medicine; Referring Provider Family Medicine; Visit Provider Orthopaedic Surgery | DX: M75.101 Unspecified rotator cuff tear or rupture of right shoulder, not specified as traumatic (principal); M12.811 Other specific arthropathies, not elsewhere classified, right shoulder; M67.912 Unspecified disorder of synovium and tendon, left shoulder | CPT/HCPCS: 73030; 99204 ==

== ENCOUNTER 2021-12-02 11:17 | Outpatient (CLI) | payer MEDICARE, SELFPAY ==
--- NOTE | 2021-12-02 12:00 | CT_ITS ---
WS: [id number] CT RIGHT SHOULDER, NONCONTRAST. HISTORY: pain Technique: All CT scans at [facility] use at least one of these dose optimization techniques: automated exposure control; mA and/or kV adjustment per patient size (includes targeted exams where dose is matched to clinical indication); or iterative reconstruction. DLP: 841.62 mGy.cm COMPARISON: Shoulder radiograph 11/25/2021 Marked narrowing of the glenohumeral joint with osteophyte formation and osteophytic ridging involvin g the humeral head and the glenoid. There are lucencies involving the bases of the osteophytes at the glenoid. With no history of trauma these are probably osteophytes and not fractures. Subchondral cys tic changes and cortical osseous hypertrophy around the humeral head. There is a triangular-shaped os teophyte or loose body in the superior glenohumeral joint measuring 5 mm. Humeral head is high riding in association with the glenoid. The glenoid is vertical and has lost its normal concavity. Moderate AC joint hypertrophy. There is a large osteophyte by 10 mm extending inferiorly contacting t he supraspinatus tendon and muscle just medial to the humeral head. There is mild narrowing of the harman bacromial joint space. At least 2 anchors are noted in the humeral head. There may be a third anchor or one of the anchors may be fractured. Severe atrophy and fatty replacement of the supraspinatus muscle. Emphysematous changes at the lung apices. There are diffuse small micronodules in the periphery RIGHT upper lobe. CT/CT shoulder RT wo con* [id number] IMPRESSION: 1. Severe glenohumeral joint narrowing and osteophytic ridging from the glenoi d and humeral head. 2. Small triangular shaped loose body or osteophyte in the superior glenohumer al joint measures 5 mm. 3. High riding humeral head. 4. Severe atrophy and fatty replacement supraspinatus muscle. 5. Large hypertrophic osteophyte from the distal clavicle encroaches into the supraspinatus along the medial humeral head.
== END 2021-12-02 11:18 | disposition home or self-care (01) ==
LOC: RAD 11:22
PROVIDERS: PCP Family Medicine; Visit Provider Orthopaedic Surgery
DX: M75.101 Unspecified rotator cuff tear or rupture of right shoulder, not specified as traumatic (principal); M12.811 Other specific arthropathies, not elsewhere classified, right shoulder
CPT/HCPCS: 73200

== ENCOUNTER 2021-12-14 13:36 | Observation (INO) | payer MEDICARE, SELFPAY ==
[2021-12-11 13:10] VITALS: BMI 28.5
--- NOTE | 2021-12-11 13:20 | ECG_ITS ---
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 Measurements Intervals [place] Rate: 75 P: 12 UT: 163 QRS: 22 QRSD: 105 T: 62 QT: 364 QTc: 409 Interpretive Statements SINUS RHYTHM Compared to ECG 08/05/2020 08:57:09 No significant changes Electronically Signed On 12-11-2021 20:44:46 CDT by Hali Dumont M.D. [email or web address]
--- NOTE | 2021-12-11 14:05 | ANES.PREANE2 ---
Pre-Anesthetic Assessment Height/Weight: Height 1.85 m Weight 97.976 kg Operation Date: 12/14/21 07:00 Proposed Procedures p Right Total Reverse Shoulder Arthroplasty 75632/m75.101/m12.811(Right) - Jeff Edwards MD Familial anesthetic complications: None Social Tobacco and No alcohol Exam alert, oriented x 3, clear to auscultation bilaterally and regular rate & rhythm Airway Mallampati: Class I Dentition: chipped (multiple) Pulmonary None reported CV/HEM SVT (nonsustained) on flecainde None reported Hepatic None reported GI Gastroesophageal Reflux Disease Metabolic None reported Musc/skel Osteoarthritis/DJD Neuropsych None reported Anesthetic Plan ASA status: 2 Anesthesia: General and Regional (specify below) Risk of > 500 ml blood loss (7ml/kg in children): No Medications/Allergies Home Medications Medication Instructions Recorded Confirmed Last Taken Type omeprazole 20 mg capsule,delayed 20 mg PO QAM 08/04/20 12/11/21 08/04/20 History release flecainide 50 mg tablet 50 mg PO Q12H 12/11/21 12/11/21 Unknown History Allergies Allergy/AdvReac Type Severity Reaction Status Date / Time No Known Allergies Allergy Verified 11/25/21 14:54 PFSH Anesthesia Medical History Cervical vertebral fusion Dilated aortic root Palpitations Surgical History (Updated 12/11/21 @ 13:05 by Skylar Tomlinson) H/O hand surgery H/O knee surgery H/O shoulder surgery Family History Other CAD (coronary artery disease) Diabetes Social History Smoking and tobacco status: never smoked Alcohol intake: current Alcohol intake frequency: few times a week Housing: House Data Anesthesia Cardiac Studies: Echocardiogram Ultrasound 08/05/20 Sestamibi Stress Test (Cardiology) 09/11/20
[2021-12-14] VITALS (16 sets, daily range): BP systolic 97–135; BP diastolic 68–93; PULSE 54–79; RESP 10–20; TEMP 35.8–36.4; O2SAT 91–97; BMI 28.5
[2021-12-14] MEDS: sodium chloride 0.9% 1,000 ML 30 ML IV (06:06)
[2021-12-14] MEDS: CELEcoxib 200 mg Capsule 400 MG PO (06:07)
[2021-12-14] MEDS: acetaminophen 500 mg Tablet 1000 MG PO ×3 (06:07→21:15)
[2021-12-14] MEDS: gabapentin 300 mg Capsule PO ×2 (06:08→17:16)
[2021-12-14] MEDS: oxyCODONE 20 mg ER (12 HR) Tablet PO (06:08)
[2021-12-14] MEDS: ondansetron 2 mg/ML SDV 2 mL 4 MG IVP (06:09)
--- NOTE | 2021-12-14 07:16 | ANES.PROC ---
Documented by User: Stormy Johnson CRNA 12/14/21 07:21 Anesthesia Procedures Procedure/Date: 12/14/21 interscalene nerve block Nerve Block ^: Nerve Block 1: Main Anesthesia: general anesthesia Time Out Performed: Yes Consent: requested by attending/covering physician, from patient, risks and benefits reviewed and patient agrees to proceed Nerve block location: interscalene Anesthesia monitors applied: pulse oximetry and BP cuff Nerve block position: semi sitting Anesthetic Used: ropivicaine 0.5% Amount of anesthesia used (mL): 30 Ultrasound used to: recognize landmarks, visualize and ID brachial plexus and visualize and ID interscalene groove Nerve Stimulator Used?: No Interscalene/Femoral BLK: 2 stimuplex 22 g needle used for position and inplane approach, visualize local anesthetic spread and no vascular puncture identified Injection: neg aspiration of heme Patient Tolerated Procedure: well Complications: none Additional Comments: 30 ml 0.5% Ropivicaine injected under visualization Documented by User: Jony Esqueda 12/14/21 07:28 Anesthesia Procedures Procedure/Date: 12/14/21
--- NOTE | 2021-12-14 07:28 | P.ANESUD_ITS ---
Pre-Anesthetic Update Pre-Anesthetic Assessment: Date of Surgery/Procedure: 12/14/21 Preop Mallika gnosis: Right rotator cuff t ear Proposed Procedure: Operation Date: 12/14/21 07:00 Proposed Procedures p Right Total Reverse Shoulder Arthroplasty 63947/m75.101/m12.811(Right) - Jeff Edwards MD Any changes to Pre-Anesthetic Assessment?: No Last Intake: Intake Last Liquid Date 12/13/21 Last Liquid Time 21:00 Last Solid Date 12/13/21 Last Solid Time 21:00 Vitals: Temperature 97.4 F L 12/14/21 05:54 Temperature Source Temporal Artery S can 12/14/21 05:54 Pulse Rate 69 12/14/21 05:54 Respiratory Rate 16 12/14/21 06:08 Respiratory Effort 12/14/21 06:08 Respiratory Depth Normal 12/14/21 06:08 Respiratory Patter n 12/14/21 06:08 Blood Pressure 135/93 12/14/21 05:54 Blood Pressure Tania n 107 12/14/21 05:54 Pulse Oximetry 96 12/14/21 06:08 Oxygen Delivery Me thod 12/14/21 05:54 Exam: Pre-Anes Outpt Exam: alert, oriented x 3, clear to auscultation bilaterally and regular rate & rhythm Cardiac Studies: Echocardiogram Ultrasound 08/05/20 Sestamibi Stress Test (Cardiology) 09/11/20
--- NOTE | 2021-12-14 08:34 | W.PM.OPSFHP ---
Same Day Surgery H&P Indication for Procedure/HPI DATE OF PROCEDURE: December 14, 2021 CHIEF COMPLAINT/INDICATIONFOR SURGICAL PROCEDURE: Right rotator cuff arthropathy here for reverse total shoulder PREOP DIAGNOSIS: Right rotator cuff t ear PLANNED PROCEDURE: Operation Date: 12/14/21 07:00 Proposed Procedures p Right Total Reverse Shoulder Arthroplasty 08813/m75.101/m12.811(Right) - Jeff Edwards MD This is a new 61 year old male patient he is here today for an evaluation of his bilateral shoulder pain. Patient states that he has had pain in his shoulder for years.? Describes years of pain was seen by me actually in [place] 10 years ago and underwent a arthroscopic right rotator cuff repair.? He did well for some time until approximately 2 to 3 years ago when his pain recurred.? He was seen by Dr. Viktor Barry in [place] and underwent a superior capsular reconstruction.? He described a fall and subsequent pain.? He is now bothered by ongoing discomfort in the right shoulder ever since.? He states that constant at levels of a 6 or 7/10 in intensit.? He describes difficulty sleeping.? He describes the inability to really use his arm for anything particularly over the past 6 months.? He alleges that he saw Dr. Barry and discussed full surgery.? He was told ultimately at that time he would need a reverse total shoulder.? He now feels sufficiently limited.?? Medications/Allergies* Home Medications Medication Instructions Recorded Confirmed Type omeprazole 20 mg capsule,delayed 20 mg PO QAM 08/04/20 12/14/21 History release flecainide 50 mg tablet 50 mg PO Q12H 12/11/21 12/14/21 History Allergies/Adverse Reactions Allergy/AdvReac Type Severity Reaction Status Date / Time No Known Allergies Allergy Verified 12/14/21 06:17 Current Medications: Generic Name Dose Route Start Last Admin Trade Name Freq PRN Reason Stop Dose Admin Sodium Chloride 1,000 mls @ 30 mls/hr 12/14/21 06:00 12/14/21 06:06 Sodium Chloride 0.9% IV 12/15/21 05:59 30 mls/hr .Q24H BETHANY Administration Ondansetron HCl 4 mg 12/14/21 05:47 12/14/21 06:09 Ondansetron 2 Mg/Ml Sdv 2 Ml IVP 4 mg Q5M PRN Administration NAUSEA AND VOMITING Pertinent History/Comorbid Conditions* Medical History (Updated 11/25/21 @ 15:58 by Jeff Edwards MD) Cervical vertebral fusion Dilated aortic root Palpitations Surgical History (Updated 08/04/20 @ 23:15 by Lorraine Mosley MD) H/O hand surgery H/O knee surgery H/O shoulder surgery Family History (Updated 08/04/20 @ 23:16 by Lroraine Mosley MD) Diabetes CAD (coronary artery disease) Social History Smoking and tobacco status: never smoked Alcohol intake: current Alcohol intake frequency: few times a week Housing: House Pertinent Exam Findings alert, oriented x 3, clear to auscultation bilaterally, regular rate & rhythm and operative site marked Recommendations Surgery/Procedure today Coding Level of Care Code 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
[2021-12-14] MEDS: tranexamic acid 1,000 mg/10mL SDV 1000 MG IV (09:40)
[2021-12-14] MEDS: tranexamic acid 1,000 mg/10mL SDV 2000 MG IRRIGATION (10:20)
[2021-12-14] MEDS: sodium chloride 0.9% 100 mL Bag XX (10:21)
--- NOTE | 2021-12-14 12:25 | XRR_ITS ---
PROCEDURE INFORMATION: Exam: XR Right Shoulder Exam date and time: 12/14/2021 12:43 PM Age: 61 years old Clinical indication: Device placement; Other: R reverse total shoulder; Prior surgery; Surgery date: Post-operative (0-2 days) TECHNIQUE: Imaging protocol: XR Right shoulder. Views: 2 or more views. COMPARISON: CT shoulder RT wo con* [id number] 12/02/2021 11:45 AM FINDINGS: Bones/joints: The patient is status post right total shoulder arthroplasty. No evidence of hardware related complication. Osseous fragment measuring about 1.4 cm is seen lateral to the joint. Expected postoperative soft tissue changes seen. Soft tissues: See Bones/joints finding. XR/XR shoulder RT min 2V* [id number] IMPRESSION: Status post right total shoulder arthroplasty, without evidence of hardware related complication.
--- NOTE | 2021-12-14 12:26 | PM.OP ---
Operative Report Date of procedure: December 14, 2021 Pre-op diagnosis: Preop Diagnosis Right rotator cuff t ear Post-op diagnosis: same Post-op findings: The patient had a complete tear of the supraspinatus and infraspinatus musculature. He had severe wear of the glenohumeral joint with posterior and superior wear. Procedure done: Right reverse total shoulder Implants: 1) Tornier Aequalis Ascend Flex 4B stem 2) Flex Shoulder System reversed baseplate +0mm 3) Flex Shoulder System []mm 42 mm reversed insert 4) Aequalis PerForm Reversed 42 mm standard glenosphere 5) Glenoid screws: central 40 mm x 6.5 mm, superior 42 mm inferior 34 mm, anterior 22 mm, posterior 18 mm Pathology: none sent Surgeon: Jeff Edwards Anesthesia: General and Nerve Block (Interscalene block) Estimated blood loss (mL): 200 Findings: Patient had a massive tear of his right rotator cuff involving all of his supraspinatus and infraspinatus musculature with proximal migration of his humeral head in the glenoid. He had peripheral osteophytes about the humeral head but no significant humeral head collapse. He had superior posterior glenoid wear Condition: stable Disposition: PACU Procedure: An intrascalene blocks provided the holding area. The patient was taken to the operating room and given a general anesthesia. They were given 2 g of Ancef. A Naik stand was covered and use to support support the arm A timeout was performed. A 10 cm long incision was made over the deltopectoral groove and dissection carried out with a scalpel blade to the deltopectoral interval. The cephalic vein was identified and retracted laterally. Digital dissection was accomplished to free lesions beneath the deltoid and beneath the coracobrachialis musculature. An Javier medium tissue protector was used to retract the pectoralis major and the deltoid. The biceps tendon was not visualized and presumably represented a long-term tear. The subscapularis and a capsule was then peeled off of the lesser tuberosity and fixed with 3 tape sutures in a locking Krak?w fashion from superior to inferior. Capsular release was accomplished across the inferior capsule from the glenoid. Utilizing electrocautery the glenoid was exposed circumferentially. The centering guide was used to place the central guidepin at a 10 degrees inferior slope in accordance with our preoperative plan to bring the glenoid down to neutral tilt. Glenoid reaming entailedremoving slightly more inferior bone. A 29 mm Aequalis PerForm baseplate was secured with a 6.5 x 40 mm cnetral crew, a superior locking 42 mm screw, an inferior locking 34 mm screw, an anterior 22 mm screw and a posterior 18 mm screw. A standard 42 mm Aequalis perFORM ReversedGlenosphere was then placed. Attention was then focused on the humerus. Sequential and broaching of the canal was accomplished up to a size 4B stem with satisfactory stability.. A trial reduction with the []mm reversed insert provided adequate stability. The final humeral stem, reverse tray and insert were press-fit into place and the shoulder reduced with a stable reduction. 4 drill holes were then made in the bicipital groove. Sutures through the subscapularis were then passed through tunnels at the most superior suture through the most proximal hole. The second pair of sutures through the second hole, the third pair of sutures to the third hole in the fourth suture through the fourth hole. They were tied over the lateral cortex of the humerus The wound was irrigated with a solution of 100 cc of saline with 1 g of tranexamic acid. The deltopectoral interval was closed with 0 Vicryl. The subcutaneous tissues were closed with 2-0 Stratafix. The skin was closed with a running 4-0 Stratafix. Sterile dressings were applied. The patient was placed in a abduction pillow, extubated and taken to recovery room in stable condition.
--- NOTE | 2021-12-14 14:24 | ANE.PACU2 ---
Inpatient post-anesthesia follow up: Airway intact: Yes Vital signs: Temperature 97.6 F Pulse Rate 56 Respiratory Rate 18 Blood Pressure 110/74 Pulse Oximetry 91 Oxygen Delivery Me thod Room Air Oxygen Flow Rate Fraction of Inspir ed Oxygen Hydration adequate: Yes Nausea and vomiting: No Pain level: 1 Mental status: Baseline
[2021-12-14] MEDS: sodium chloride 0.9% 1,000 ML 100 ML IV (15:52)
[2021-12-14] MEDS: CELEcoxib 200 mg Capsule PO (17:16)
[2021-12-14] MEDS: flecainide 100 mg Tablet 50 MG PO (21:16)
[2021-12-15] VITALS: BP 128/67; PULSE 63; RESP 15; TEMP 36.6; O2SAT 98
[2021-12-15] MEDS: sodium chloride 0.9% 1,000 ML 100 ML IV (03:09)
[2021-12-15 04:00] VITALS: BP 110/69; PULSE 70; RESP 18; TEMP 36.5; O2SAT 94
[2021-12-15] MEDS: pantoprazole DR 40 mg Tablet PO (06:12)
[2021-12-15] MEDS: acetaminophen 500 mg Tablet 1000 MG PO (06:12)
[2021-12-15] MEDS: CELEcoxib 200 mg Capsule PO (06:12)
[2021-12-15 07:10] VITALS: BP 121/76; PULSE 69; RESP 16; TEMP 36.8; O2SAT 94
--- NOTE | 2021-12-15 07:32 | P.DS_ITS ---
Discharge Providers Date of Admission: 12/14/21 13:36 Date of Discharge: December 15, 2021 Attending Provider at Admission: Jeff Wooten MD Attending Provider at Discharge: Jeff Wooten MD Primary Care Provider: Ang Colmenares Diagnoses at Discharge Discharge Diagnosis (1) Status post reverse total arthroplasty of right shoulder: Status: Acute (2) Rotator cuff tear arthropathy of right shoulder: Status: Resolved Reason for Visit Reason for Visit: rotator cuff tear arthropathy rt shoulder Brief History: 61-year-old male with right shoulder pain and weakness attributable to a chronic rotator cuff tear. Admitted for right reverse total shoulder arthroplasty Hospital Course Hospital Course The patient tolerated surgery well. They remained hemodynamically stable. They was begun on aspirin and foot pumps for DVT prophylaxis. The patient shoulder was mobilized with occupational therapy beginning the day of surgery.As the pain was adequately controlled and they were fully mobile they were discharged home. Physical Exam Narrative: On the day of discharge the patient's dressing was clean and dry. The patient's would fire his deltoid and his biceps. No distal neurovascular deficits were noted. Urinary Catheter Management: Forde: Cath Placed During This Visit: yes, but has since been removed by the nurse Reason for Continuing Indwelling Catheter: Decision to DC Catheter Urinary Catheter Date of Insertion: 12/14/21 Urinary Catheter Time of Insertion: 09:35 Date Urinary Catheter Removed: 12/15/21 Time Urinary Catheter Discontinued: 06:22 Discharge Data Studies Completed and Pending Completed Studies During Hospitalization Category Date Time Status XR shoulder RT min 2V* [id number] Routine Exams 12/14/21 12:25 Completed Radiology Impressions Shoulder X-Ray 12/14/21 12:25 IMPRESSION: Status post right total shoulder arthroplasty, without evidence of hardware related complication. Vitals Last Vital Signs Temp 98.2 F 12/15/21 07:10 Pulse 69 12/15/21 07:10 Resp 16 12/15/21 07:10 BP 121/76 12/15/21 07:10 Pulse Ox 94 12/15/21 07:10 Discharge Plan Discharge Patient Disposition: Home Condition: Stable Prescriptions: New oxycodone 5 mg Tablet 5 mg PO Q4H PRN (Reason: Moderate Pain) 7 Days Qty: 40 0RF acetaminophen 500 mg Tablet 1,000 mg PO Q8H 14 Days Qty: 84 0RF ondansetron HCl 4 mg tablet 4 mg PO Q8H PRN (Reason: nausea and vomiting) 5 Days Qty: 20 0RF celecoxib 200 mg Capsule 200 mg PO Q12H 14 Days Qty: 28 0RF gabapentin 300 mg Capsule 300 mg PO BID 7 Days Qty: 14 0RF Continued omeprazole 20 mg Capsule,Delayed Release(Dr/Ec) 20 mg PO QAM 0RF flecainide 50 mg Tablet 50 mg PO Q12H 0RF Discharge Orders: Discharge Order (Routine); Ordered 12/15/21 Ordered By: Jeff Wooten Referrals: Jeff Wooten MD [Physician] - 12/18/21 8:00 am Discharge Diet: Advance as tolerated Discharge Activity: Limit activity as instructed Patient Instructions: Opioid Safety Activity Restrictions/Additional Instructions: Okay to shower Leave dressing in place Apply Ice up to 20 min/hr for pain and swelling Take Celebrex twice a day for the next 15 days for pain , discontinue other anti-inflammatories Take Neurontin twice a day for 7 days. Take Tylenol 500mg (2 tabs) as needed 3 times a day for mild pain take oxycodone for breakthrough pain. Exercises as instructed by occupational therapy Leave arm in immobilizer when not performing exercises May weight-bear as tolerated on total knee arthroplasty IF HAVE ANY PROBLEMS OR QUESTIONS CALL [facility] AT AND ASK TO HAVE DR. WOOTEN PAGED. Discharge Attestations Time Spent in Discharge Care*: other Quality Metrics Clinical Quality Measures [ No reported AMI, CVA or VTE this stay] Coding Level of Care Code Acute g [facility] note Diagnoses Status post reverse total arthroplasty of right shoulder Z96.611 Rotator cuff tear arthropathy of right shoulder M75.101; M12.811
[2021-12-15] MEDS: flecainide 100 mg Tablet 50 MG PO (08:41)
[2021-12-15] MEDS: gabapentin 300 mg Capsule PO (08:41)
[2021-12-15 10:08] VITALS: BP 121/76; PULSE 69; RESP 16; TEMP 36.8; O2SAT 94
--- NOTE | 2021-12-15 10:12 | PC.NURSE ---
patient and family verbalized understanding of discharge instructions, therapy directions, home medications, and follow up appointments.
== END 2021-12-15 10:11 | disposition home or self-care (01) ==
LOC: MEDSURG 13:40
PROVIDERS: Admitting Provider Orthopaedic Surgery; PCP Family Medicine; Visit Provider Orthopaedic Surgery
PROC: (CPT 23472; principal; 2021-12-14 07:00)
DX: M75.101 Unspecified rotator cuff tear or rupture of right shoulder, not specified as traumatic (principal); M12.811 Other specific arthropathies, not elsewhere classified, right shoulder; K21.9 Gastro-esophageal reflux disease without esophagitis
CPT/HCPCS: 23472; 51702; 64415; 73030; 76942; 93005; 97165; C1713; C1776; G0378; J0330; J0690; J1100; J1170; J2370; J2405; J2704; J2710; J2795; J3010; J3490; J7030

== ENCOUNTER → 2021-12-18 07:54 | Outpatient (BNVA) | payer MEDICARE, SELFPAY | PROVIDERS: PCP Family Medicine; Visit Provider Nurse Practitioner Family | DX: Z96.611 Presence of right artificial shoulder joint (principal); B02.9 Zoster without complications | CPT/HCPCS: 99213; 99214 ==

== ENCOUNTER → 2022-01-06 07:52 | Outpatient (BNVA) | payer MEDICARE, SELFPAY | PROVIDERS: PCP Family Medicine; Visit Provider Nurse Practitioner Family | DX: Z98.890 Other specified postprocedural states (principal); Z96.611 Presence of right artificial shoulder joint | CPT/HCPCS: 73030 ==

== ENCOUNTER → 2022-04-07 07:54 | Outpatient (BNVA) | payer MEDICARE, SELFPAY | PROVIDERS: PCP Family Medicine; Visit Provider Nurse Practitioner Family | DX: Z98.890 Other specified postprocedural states (principal); Z96.611 Presence of right artificial shoulder joint | CPT/HCPCS: 73030; 99213 ==

== ENCOUNTER → 2022-10-13 08:37 | Outpatient (BNVA) | payer MEDICARE, SELFPAY | PROVIDERS: PCP Family Medicine; Visit Provider Orthopaedic Surgery | DX: Z96.611 Presence of right artificial shoulder joint (principal) | CPT/HCPCS: 73030; 99212 ==

== ENCOUNTER → 2023-03-07 15:07 | Outpatient (BNVA) | payer MEDICARE, SELFPAY | PROVIDERS: PCP Family Medicine; Referring Provider Family Medicine; Visit Provider Specialist | DX: M17.12 Unilateral primary osteoarthritis, left knee (principal); M23.204 Derangement of unspecified medial meniscus due to old tear or injury, left knee | CPT/HCPCS: 20610; 73560; 73565; 99204; J1100; J2795; J3301 ==